=== PATIENT | female | born 1995 | race Caucasian/White ===

== ENCOUNTER 2021-09-08 08:33 | Emergency (ER) | payer OTHER ==
[~2021-09-08] VITALS: Ht 175.3 cm; Wt 63.5 kg
--- NOTE | 2021-09-08 08:48 | NUR ---
PT IS IN ROOM #2A. DR COLEY EVALUATED THE PT.
[2021-09-08] MEDS ORDERED: KETOROLAC TROMETHAMINE 15 MG INJ ONE (08:58)
[2021-09-08] MEDS ORDERED: DICYCLOMINE HCL LIQ 10 MG/5 ML UDC ONE ×2 (08:59→09:02)
[2021-09-08 09:00] LABS: *URINE HCG, QUAL NEG (NEGATIVE)
[2021-09-08] MEDS ORDERED: KETOROLAC TROMETHAMINE 15 MG INJ IVP ONE (09:00)
[2021-09-08] MEDS ORDERED: IV NORMAL SALINE 1000 ML BAG IV ONE (09:00)
[2021-09-08] MEDS ORDERED: DICYCLOMINE HCL 20 MG TABLET PO ONE (09:00)
[2021-09-08] MEDS ORDERED: ONDANSETRON 4 MG/2 ML VIAL IV ONE (09:00)
[2021-09-08 09:02] LABS: *BILIRUBIN,URIN NEGATIVE (NEGATIVE); *BLOOD, URINE 2+ (NEGATIVE); *CLARITY,URINE SLIGHTLY CLOUDY (CLEAR); *COLOR,URINE YELLOW (YELLOW); *KETONES,URINE NEGATIVE (NEGATIVE); *UROBILINOGEN,URINE 0.2 E.U./dl (NORMAL); LEUKOCYTE ESTERASE ,URINE TRACE (NEGATIVE); NITRITE, URINE POSITIVE (NEGATIVE); UGLUCOSE NEGATIVE (NEGATIVE)
[2021-09-08 09:17] LABS: HEMATOCRIT 32.3 % (31.2-41.9); MEAN CORPUSCULAR HEMOGLOBIN 32.6 uug (24.7-32.8); MEAN CORPUSCULAR VOLUME 95.9 fL (75.5-95.3); PLATELET COUNT (AUTO) 367 K/uL (179-408)
[2021-09-08 09:19] LABS: *AMPHETAMINE, URINE NEGATIVE (NEGATIVE); *CANNABINOID, URINE POSITIVE (NEGATIVE); *COCCAINE, URINE NEGATIVE (NEGATIVE); *OPIATE, URINE POSITIVE (NEGATIVE); *PHENCYCLIDINE SCREEN,URINE NEGATIVE (NEGATIVE)
[2021-09-08] MEDS ORDERED: ONDANSETRON 4 MG/2 ML VIAL ONE (09:24)
[2021-09-08 09:27] LABS: CREATININE 0.8 mg/dL (0.6-1.3); POTASSIUM 4.2 mmol/L (3.5-5.1)
[2021-09-08 09:43] LABS: BILIRUBIN,DIRECT 0.1 mg/dL (0.0-0.2); BILIRUBIN,TOTAL 0.4 mg/dL (0.2-1.0); TOTAL PROTEIN, SERUM 7.4 g/dL (6.4-8.2)
[2021-09-08] MEDS ORDERED: CEphaleXIN 500 MG CAPSULE PO ONE (10:00)
[2021-09-08] MEDS ORDERED: DICY10CA13 PO (10:06)
[2021-09-08] MEDS ORDERED: CEPH500C2 PO (10:06)
[2021-09-08] MEDS ORDERED: CEphaleXIN 500 MG CAPSULE ONE (10:07)
--- NOTE | 2021-09-08 10:14 | NUR ---
PT WAS D/C'd TO HOME. D/C INSTRUCTIONS GIVEN TO THE PT BY DR COLEY.
[2021-09-08 10:22] VITALS: BP 118/68
[2021-09-08 11:42] LABS: BACTERIA,URINE MANY /HPF (NONE SEEN); SQUAMOUS EPITHELIAL CELL,UR FEW /HPF (NONE SEEN)
== END 2021-09-08 10:25 | disposition home or self-care (01) ==
LOC: ER 08:33
DX: N39.0 Urinary tract infection, site not specified (principal); R10.12 Left upper quadrant pain
CPT/HCPCS: 36415; 80048; 80076; 80307; 81001; 83690; 84703; 85025; 87086; 96361; 96374; 96375; 99284; J1885; J2405; A4663; J7040